=== PATIENT | male | born 1980 | race Hispanic/Latino ===

== ENCOUNTER 2016-10-10 12:33 | Emergency (ER) | payer MEDICAID ==
[2016-10-10 12:51] VITALS: BMI 33.5
[2016-10-10 12:55] VITALS: TEMP 98
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
--- NOTE | 2016-10-10 13:56 | CT ---
PROCEDURE: CT ORBITS WITHOUT CONTRAST. HISTORY: trauma COMPARISON: None available. TECHNIQUE: Axial CT images of the orbits were obtained. Coronal and sagittal reformats were generated. Radiation dose: Total exam DLP = 1056.21 mGy-cm. This CT exam was performed using one or more of the following dose reduction techniques: Automated exposure control, adjustment of the mA and/or kV according to patient size, and/or use of iterative reconstruction technique. FINDINGS: RIGHT ORBIT: RIGHT BONY ORBIT: Depressed fracture right orbital floor, comminuted. Extensive depressed fracture right lamina papyracea. RIGHT INTRAORBITAL STRUCTURES: Globe: Normal. Extraocular muscles: Normal. Post septal space: Normal. Optic Nerve: Normal. Lacrimal Apparatus: Normal. RIGHT PRESEPTAL SOFT TISSUES: Subcutaneous emphysema in the left preseptal soft tissues extending inferiorly over the right maxilla. LEFT ORBIT: LEFT BONY ORBIT: Normal. LEFT INTRAORBITAL STRUCTURES: Globe: Normal. Extraocular muscles: Normal. Post septal space: Normal Optic Nerve: Normal. . Lacrimal Apparatus: Normal. LEFT PRESEPTAL SOFT TISSUES: Normal. OTHER: None. IMPRESSION: Comminuted depressed right orbital floor fracture. Blood in right maxillary antrum with air-fluid level. Extensive depressed right lamina papyracea fracture. No intraorbital hemorrhage.
[2016-10-10 14:37] VITALS: BP 129/71; PULSE 75; RESP 20; O2SAT 100
== END 2016-10-10 14:41 | disposition home or self-care (01) ==
LOC: ED 12:33
DX: S02.31XA Fracture of orbital floor, right side, initial encounter for closed fracture (principal); Y04.2XXA Assault by strike against or bumped into by another person, initial encounter; Y92.89 Other specified places as the place of occurrence of the external cause

== ENCOUNTER 2017-12-19 15:11 | Emergency (ER) | payer MEDICAID ==
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
[2017-12-19 16:13] VITALS: TEMP 98.4; BMI 34.4
[2017-12-19] MEDS ORDERED: Oxycodone/Acetaminophen 5/325 mg Tab PO STA ×2 (16:13→18:29)
--- NOTE | 2017-12-19 17:41 | RAD ---
Date of service: 12/19/2017 PROCEDURE: Radiographs of the Lumbar Spine. HISTORY: back pain COMPARISON: No prior. FINDINGS: BONES: Normal alignment. No listhesis. No fracture. DISC SPACES: Unremarkable. OTHER FINDINGS: None. IMPRESSION: Unremarkable radiographs of the lumbar spine.
[2017-12-19 20:43] VITALS: BP 122/78; PULSE 65; RESP 17; O2SAT 100
--- NOTE | 2017-12-20 08:47 | CT ---
Date of service: 12/19/2017 PROCEDURE: CT Lumbar Spine without contrast HISTORY: back pain COMPARISON: None. TECHNIQUE: Axial computed tomography images were obtained of the lumbar spine without the use of intravenous contrast. Coronal and sagittal reformatted images were created and reviewed. Radiation dose: Total exam DLP = mGy-cm. This CT exam was performed using one or more of the following dose reduction techniques: Automated exposure control, adjustment of the mA and/or kV according to patient size, and/or use of iterative reconstruction technique. FINDINGS: VERTEBRAE: Unremarkable. No fracture. Normal alignment. DISCS/SPINAL CANAL/NEURAL FORAMINA: L1-2: Unremarkable. L2-3: Unremarkable. L3-4: Unremarkable. L4-5: Unremarkable. L5-S1: Unremarkable. PARASPINAL SOFT TISSUES: Unremarkable. OTHER FINDINGS: None. IMPRESSION: Unremarkable CT of Lumbar Spine.
== END 2017-12-19 20:43 | disposition home or self-care (01) ==
LOC: ED 15:11
DX: M54.5 Low back pain (principal); Z76.5 Malingerer [conscious simulation]

== ENCOUNTER 2018-01-21 19:04 | Emergency (ER) | payer MEDICAID ==
[2018-01-21 19:20] VITALS: BP 134/93; PULSE 69; RESP 18; TEMP 98.3; O2SAT 97; BMI 35.4
[2018-01-21] MEDS ORDERED: Tobramycin 0.3% OPHT SOLN OS STA (20:16)
[2018-01-21] MEDS ORDERED: Naproxen 550 mg Tab PO STA (20:16)
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
== END 2018-01-21 21:09 | disposition home or self-care (01) ==
LOC: ED 19:04
DX: T15.92XA Foreign body on external eye, part unspecified, left eye, initial encounter (principal); X58.XXXA Exposure to other specified factors, initial encounter; F17.210 Nicotine dependence, cigarettes, uncomplicated